=== PATIENT | female | born 1965 | race Caucasian/White ===

== ENCOUNTER 2018-02-20 14:49 | Emergency (ER) | payer MEDICARE ==
[~2018-02-20] VITALS: Ht 160 cm; Wt 97.5 kg
[~2018-02-20 14:49] MED LIST: DEPAKOTE250 MG PO; LAMICTAL100 MG PO; PROZAC40 MG PO
--- OUTSIDE RECORDS SUMMARY | 2018-02-20 14:51 | XMS REPORT | Clinical Summary ---
Author Author [facility] Organization [facility] Address Unknown Phone Unavailable Care Team Providers Care Brush Or Broom Cutter Name Role Phone Sharpless PCP Allergies Comments Active Allergy Reactions Severity Noted Date Asthma attack Naproxen Sodium Shortness Of High 05/25/2015 Breath ASTHMA Salicylates Shortness Of High 08/17/2015 Breath Codeine Nausea And 05/25/2015 Vomiting ASTHMA ATTACK Ibuprofen Shortness Of High 11/22/2015 Breath Penicillins Nausea And 05/25/2015 Vomiting Pseudoephedrine Hcl High 01/25/2016 Medications End Date Status Medication Sig Dispensed Refills Start Date Active fLUoxetine (PROZAC) 20 MG Take 80 mg by 0 capsule mouth daily. Active lamoTRIgine (LAMICTAL) Take 200 mg 0 200 MG tablet by mouth 2 (two) times daily. Active QUEtiapine (SEROQUEL) 25 Take 25 mg by 0 MG tablet mouth nightly. Active venlafaxine (EFFEXOR) 75 Take 75 mg by 0 MG tablet mouth daily. Active divalproex (DEPAKOTE) 250 Take 3 180 tablet 3 201 MG EC tablet tablets (750 6 mg total) by mouth 2 (two) times daily. Active Problems Problem Noted Date Acute encephalopathy 01/25/2016 Seizure 01/24/2016 Epilepsy 11/22/2015 Seizures 05/25/2015 Family History Medical History Relation Name Comments Rheum arthritis Father Diabetes Mother Rheum arthritis Mother Asthma Sister Cancer Sister Diabetes Sister Hypertension Sister Rheum arthritis Sister Relation Name Status Comments Father Mother Sister Social History Date Tobacco Use Types Packs/Day Years Used Quit: 04/14/2011 Former Smoker Smokeless Tobacco: Never Used Alcohol Use Drinks/Week oz/Week Comments Yes RARELY Sex Assigned at Date Recorded Not on file Industry Job Start Date Occupation Not on file Not on file Not on file Travel End Travel History Travel Start No recent travel history available. Last Filed Vital Signs Not on file Plan of Treatment Not on file Results Not on fileafter 02/19/2017 Insurance Payer Benefit Subscriber ID Type Phone Address Plan / Group MEDICARE MEDICARE A xxxxxxxxxx Medicare B Advance Directives For more information, please contact: [address] [address] Date Inactivated Comments Code Status Date Activated 01/25/2016 7:20 PM Full Code 01/24/2016 8:52 PM This code status was determined by: Patient 11/22/2015 9:49 PM Full Code 11/22/2015 4:36 PM This code status was determined by: Patient 06/01/2015 11:18 PM Full Code 05/25/2015 12:36 PM This code status was determined by: Patient
--- OUTSIDE RECORDS SUMMARY | 2018-02-20 14:51 | XMS REPORT ---
Author Author [facility] Address Unknown Phone Unavailable Care Team Providers Care Colorectal Surgeon Name Role Phone Unavailable Unavailable Payers Payer Name Policy Type Policy Number Effective Date Expiration Date Problems This patient has no known problems. Allergies, Adverse Reactions, Alerts Allergy Name Allergy Type Status Severity Reaction(s) Onset Date Inactive Date Treating Clinician Comments Phenytoin Sodium Extended DA Active [place] 2012-06-21 00:00:00 phenytoin sodium DA Active [place] 2012-06-21 00:00:00 pseudoephedrine HCl DA Active [place] 2012-06-21 00:00:00 Penicillins DA Active U 2012-06-21 00:00:00 codeine DA Active U 2012-06-21 00:00:00 aspirin DA Active U 2012-06-21 00:00:00 ibuprofen DA Active U 2012-06-21 00:00:00 erythromycin base DA Active U 2012-06-21 00:00:00 Medications This patient has no known medications. Encounters Start Date/Time End Date/Time Encounter Type Admission Type Attending [facility] Care Facility Care Department Encounter ID 2018-04-14 00:00:00 2018-04-14 00:00:00 Outpatient [facility] [id number] 2018-03-10 00:00:00 2018-03-10 00:00:00 Outpatient [facility] [id number] 2017-12-30 00:00:00 2017-12-30 00:00:00 Outpatient [facility] [id number] 2017-12-28 00:00:00 2017-12-28 00:00:00 Outpatient [facility] [id number] 2017-12-24 00:00:00 2017-12-24 00:00:00 Outpatient [facility] [id number] 2017-12-09 00:00:00 2017-12-09 00:00:00 Outpatient [facility] [id number] 2017-12-02 00:00:00 2017-12-02 00:00:00 Outpatient [facility] [id number] 2017-12-01 00:00:00 2017-12-01 00:00:00 Outpatient [facility] [id number] 2017-11-25 13:56:24 2017-11-25 13:56:24 Outpatient [facility] [id number] 2017-11-17 00:00:00 2017-11-17 00:00:00 Outpatient [facility] [id number] 2017-11-04 00:00:00 2017-11-04 00:00:00 Outpatient [facility] [id number] 2017-10-29 00:00:00 2017-10-29 00:00:00 Outpatient [facility] [id number] 2017-10-29 00:00:00 2017-10-29 00:00:00 Outpatient [facility] [id number] 2017-10-28 14:48:42 2017-10-28 14:48:42 Outpatient [facility] [id number] 2017-09-09 00:00:00 2017-09-09 00:00:00 Outpatient [facility] [id number] 2017-08-25 15:53:41 2017-08-25 15:53:41 Outpatient [facility] [id number] 2017-08-25 13:14:18 2017-08-25 13:14:18 Outpatient [facility] [id number] 2017-06-02 14:26:39 2017-06-02 14:26:39 Outpatient [facility] [id number] 2017-06-02 13:24:36 2017-06-02 13:24:36 Outpatient [facility] [id number] 2017-05-19 10:28:42 2017-05-19 10:28:42 Outpatient [facility] [id number] 2017-01-27 00:00:00 2017-01-27 00:00:00 Outpatient [facility] [id number] 2016-11-12 00:00:00 2016-11-12 00:00:00 Outpatient [facility] [id number] 2016-11-06 09:15:51 2016-11-06 09:15:51 Outpatient [facility] [id number]
--- OUTSIDE RECORDS SUMMARY | 2018-02-20 14:51 | XMS REPORT | Clinical Summary ---
Author Author [facility] Address Unknown Phone Unavailable Care Team Providers Care Liquid Yeast Supervisor Name Role Phone Olu Nj MD PCP Unavailable Allergies Comments Active Allergy Reactions Severity Noted Date Naproxen Sodium Anaphylaxis High 08/28/2016 Unknown reaction Aspirin Other (See 08/28/2016 Comments) Codeine GI 08/28/2016 Intolerance Ibuprofen 08/28/2016 Unknown reaction Penicillins Other (See 08/28/2016 Comments) Unknown reaction Phenytoin Sodium Extended Other (See 08/28/2016 Comments) Medications End Date Status Medication Sig Dispensed Refills Start Date Active divalproex (DEPAKOTE) 500 Take 1,000 mg 0 06/04/201 MG 24 hr tablet by mouth 2 7 (two) times a day. Active calcium carbonate (TUMS) Chew 1 tablet 0 200 mg calcium (500 mg) daily. chewable tablet 06/24/2017 Discontinued lamoTRIgine (LaMICtal) Take 150 mg 0 200 MG tablet by mouth 2 (two) times a day. 06/24/2017 Discontinued pravastatin (PRAVACHOL) Take 40 mg by 0 40 MG tablet mouth every evening. 06/24/2017 Discontinued albuterol (PROAIR Inhale 2 0 HFA,PROVENTIL puffs every 6 HFA,VENTOLIN HFA) 90 (six) hours mcg/actuation inhaler as needed for wheezing. 06/24/2017 Discontinued calcium carbonate-vitamin Take 1 tablet 0 D3 500 mg-200 unit per by mouth 2 tablet (two) times a day with meals. 06/24/2017 Discontinued omeprazole (PriLOSEC) 20 Take 20 mg by 0 MG capsule mouth 2 (two) times a day. 06/24/2017 Discontinued sertraline (ZOLOFT) 25 MG Take 25 mg by 0 tablet mouth daily. 07/24/2017 lamoTRIgine (LaMICtal) Take 1 tablet 60 tablet 0 150 MG tablet (150 mg 8 total) by mouth 2 (two) times a day for 30 days. 07/24/2017 sertraline (ZOLOFT) 25 MG Take 2 60 tablet 0 tablet tablets (50 8 mg total) by mouth daily for 30 days. Active Problems Problem Noted Date Seizures 06/23/2017 Pneumonia 11/16/2016 Weight loss 10/08/[address] of the abdomen 10/08/[address] scan, chest 10/08/2016 Abnormal tumor markers 10/08/2016 Dyspepsia 10/08/2016 Gastroesophageal reflux disease 10/08/2016 Abnormal barium swallow 10/08/2016 Malnutrition 09/08/2016 Generalized abdominal pain 09/07/2016 Overview: Added automatically from request for surgery [id number] Chest pain 08/28/2016 Encounters Care Team Description Date Type Specialty Barrington Ibrahim MD Demmler, Richard W., MD Seizures (Primary Dx) 06/23/2017 Hospital General Surgery - Encounter 06/24/2017 after 02/19/2017 Social History Date Tobacco Use Types Packs/Day Years Used Quit: 2004 Former Smoker Cigarettes Alcohol Use Drinks/Week oz/Week Comments Yes Sex Assigned at Date Recorded Not on file Industry Job Start Date Occupation Not on file Not on file Not on file Travel End Travel History Travel Start No recent travel history available. Last Filed Vital Signs Time Taken Vital Sign Reading 06/24/2017 11:09 AM CDT Blood Pressure 99/60 06/24/2017 11:09 AM CDT Pulse 91 06/24/2017 11:09 AM CDT Temperature 36.7 C (98.1 F) 06/24/2017 11:09 AM CDT Respiratory Rate 18 06/24/2017 11:09 AM CDT Oxygen Saturation 94% - Inhaled Oxygen - Concentration 06/24/2017 1:19 AM CDT Weight 77.1 kg (170 lb) 06/24/2017 1:19 AM CDT Height 160 cm (5' 3") 06/24/2017 1:19 AM CDT Body Mass Index 30.11 Plan of Treatment Health Maintenance Due Date Last Done Comments CERVICAL CANCER SCREENING 05/27/1984 BREAST CANCER SCREENING 05/27/2013 COLON CANCER SCREENING 05/27/2013 SHINGLES VACCINES (1 of 05/27/2013 2) INFLUENZA VACCINE 09/23/2017 08/23/2016 Procedures Comments Procedure Name Priority Date/Time Associated Diagnosis VALPROIC ACID LEVEL Routine 06/24/2017 10:46 AM CDT ZZESTIMATED GFR Routine 06/24/2017 6:34 AM CDT COMPREHENSIVE METABOLIC Routine 06/24/2017 PANEL 6:34 AM CDT HC COMPLETE BLD COUNT Routine 06/24/2017 W/AUTO DIFF 6:34 AM CDT XR CHEST 1 VW PORTABLE STAT 06/23/2017 7:[address] HEAD WO CONTRAST STAT 06/23/2017 4:20 PM CDT ALCOHOL LEVEL, BLOOD STAT 06/23/2017 12:59 PM CDT VALPROIC ACID LEVEL STAT 06/23/2017 12:55 PM CDT ZZESTIMATED GFR STAT 06/23/2017 12:55 PM CDT LACTIC ACID LEVEL STAT 06/23/2017 12:55 PM CDT COMPREHENSIVE METABOLIC STAT 06/23/2017 PANEL 12:55 PM CDT HC COMPLETE BLD COUNT STAT 06/23/2017 W/AUTO DIFF 12:55 PM CDT CREATINE KINASE, TOTAL STAT 06/23/2017 (CPK) 12:55 PM CDT after 02/19/2017 Results * Valproic acid level (06/24/2017 10:46 AM CDT) Only the most recent of 2 results within the time period is included. Valproic acid 148.6 (HH) 50.0 - 100.0 ug/mL [facility] DEPARTMENT OF Comment: PATHOLOGY AND Therapeutic Range: GENOMIC MEDICINE 50 - 100 ug/mL Results called to and read back by Muriel Lee RN at 11:33 on 06/24/2017 by DARIEL. Specimen Blood Performing Organization Address City/State/Zipcode Phone Number [address] [place] [address] PATHOLOGY AND Control de Pac[facility] * Estimated GFR (06/24/2017 6:34 AM CDT) Only the most recent of 2 results within the time period is included. GFR Non Af Amer 75 mL/min/1.73 m2 [facility] DEPARTMENT OF PATHOLOGY AND GENOMIC MEDICINE GFR Af Amer >90 mL/min/1.73 m2 [facility] DEPARTMENT OF Comment: PATHOLOGY AND Chronic kidney disease: <60 GENOMIC MEDICINE mL/min/1.73m2 Kidney failure: <15 mL/min/1.73m2 The estimated GFR is calculated from the IDMS-traceable Modification of Diet in Renal Disease Equation. The accuracy of the calculation is poor when the creatinine is normal. Calculated values >90 mL/min/1.73m2 are not reported. This equation has not been validated in children (<18 years), women, the elderly (>70 years), or ethnic groups other than Caucasians and Americans. Specimen Plasma specimen Performing Organization Address City/State/Zipcode Phone Number [address] [place] [address] PATHOLOGY [facility] * CBC with platelet and differential (06/24/2017 6:34 AM CDT) Only the most recent of 2 results within the time period is included. WBC 7.2 4.2 - 11.0 k/uL [facility] DEPARTMENT OF PATHOLOGY AND [facility] MEDICINE RBC 4.51 4.04 - 5.86 m/uL [facility] DEPARTMENT OF PATHOLOGY AND GENOMIC MEDICINE HGB 13.7 11.5 - 15.3 g/dL [facility] DEPARTMENT OF PATHOLOGY AND GENOMIC MEDICINE HCT 41.2 34.0 - 45.0 % [facility] DEPARTMENT OF PATHOLOGY AND GENOMIC MEDICINE MCV 91.4 80.0 - 98.0 fL [facility] DEPARTMENT OF PATHOLOGY AND GENOMIC MEDICINE MCH 29.9 27.0 - 34.0 pg [facility] DEPARTMENT OF PATHOLOGY AND GENOMIC MEDICINE MCHC 32.8 31.5 - 36.5 g/dL [facility] DEPARTMENT OF PATHOLOGY AND GENOMIC MEDICINE RDW - SD 43.7 37.0 - 51.0 fL [facility] DEPARTMENT OF PATHOLOGY AND GENOMIC MEDICINE MPV 10.6 (H) 7.4 - 10.4 fL [facility] DEPARTMENT OF PATHOLOGY AND GENOMIC MEDICINE Platelet count 201 150 - 400 k/uL [facility] DEPARTMENT OF PATHOLOGY AND GENOMIC MEDICINE Nucleated RBC 0.00 /100 WBC [facility] DEPARTMENT OF PATHOLOGY AND GENOMIC MEDICINE Neutrophils 64.3 36.0 - 66.0 % [facility] PATHOLOGY AND GENOMIC MEDICINE Lymphocytes 27.2 24.0 - 44.0 % [facility] DEPARTMENT OF PATHOLOGY AND GENOMIC MEDICINE Monocytes 7.8 (H) 0.0 - 6.0 % [facility] DEPARTMENT OF PATHOLOGY AND GENOMIC MEDICINE Eosinophils 0.1 0.0 - 6.0 % [facility] PATHOLOGY AND GENOMIC MEDICINE Basophils 0.3 0.0 - 1.2 % [facility] PATHOLOGY AND GENOMIC MEDICINE Immature granulocytes 0.3 0.0 - 1.0 % [facility] PATHOLOGY AND GENOMIC MEDICINE Specimen Blood Performing Organization Address City/State/Zipcode Phone Number [place] [address] [place] [address] PATHOLOGY AND GENOMIC [facility] * Comprehensive metabolic panel (06/24/2017 6:34 AM CDT) Only the most recent of 2 results within the time period is included. Sodium 139 135 - 150 mEq/L [facility] DEPARTMENT OF PATHOLOGY AND GENOMIC MEDICINE Potassium 3.8 3.5 - 5.0 mEq/L [facility] DEPARTMENT PATHOLOGY AND GENOMIC MEDICINE Chloride 106 100 - 109 mEq/L [facility] DEPARTMENT PATHOLOGY AND [facility] MEDICINE CO2 24 24 - 32 mmol/L [facility]PART[facility] PATHOLOGY AND Control [facility] MEDICINE Anion gap 9 7 - 15 mEq/L [facility] DEPARTMENT OF Comment: PATHOLOGY AND Starting from May [facility] , anion gap calculation no longer incorporates potassium. Please note the change. BUN 7 7 - 18 mg/dL [facility] DEPARTMENT OF PATHOLOGY AND GENOMIC MEDICINE Creatinine 0.8 0.8 - 1.5 mg/dL [facility] DEPARTMENT OF PATHOLOGY AND GENOMIC MEDICINE Glucose 95 65 - 100 mg/dL [facility] DEPARTMENT OF PATHOLOGY AND GENOMIC MEDICINE Calcium 8.6 8.6 - 10.7 mg/dL [facility] DEPARTMENT OF PATHOLOGY AND GENOMIC MEDICINE Protein 6.4 6.3 - 8.2 g/dL [facility] DEPARTMENT OF PATHOLOGY AND GENOMIC MEDICINE Albumin 3.0 (L) 3.2 - 5.0 g/dL [facility] DEPARTMENT OF PATHOLOGY AND GENOMIC MEDICINE A/G ratio 0.9 0.7 - 3.8 [facility] DEPARTMENT OF PATHOLOGY AND GENOMIC MEDICINE Alkaline phosphatase 61 30 - 120 U/L [facility] DEPARTMENT OF PATHOLOGY AND GENOMIC MEDICINE AST 13 (L) 15 - 37 U/L [facility] DEPARTMENT OF PATHOLOGY AND GENOMIC MEDICINE ALT 13 (L) 30 - 65 U/L [facility] DEPARTMENT OF PATHOLOGY AND GENOMIC MEDICINE Total bilirubin 0.7 0.2 - 1.2 mg/dL [facility] DEPARTMENT OF PATHOLOGY AND GENOMIC MEDICINE Specimen Plasma specimen Performing Organization Address City/State/Zipcode Phone Number [facility] DEPARTMENT OF [address] [place] [address] PATHOLOGY AND GENOMIC MEDICINE * XR Chest 1 Vw Portable (06/23/2017 7:26 PM CDT) Narrative Performed At EXAMINATION:XR CHEST 1 VW PORTABLE [facility] CLINICAL HISTORY:aspiration post seizure COMPARISON:Most Recent Prior at [facility] IMPRESSION: The heart is normal in size. The pulmonary vasculature is normal. There are no acute infiltrates or effusions. Mild interstitial scarring is noted. Degenerative changes of the osseous structures. [facility]-[id number] Procedure Note Hm Interface, Radiology Results Incoming - 06/23/2017 7:32 PM CDT EXAMINATION: XR CHEST 1 VW PORTABLE CLINICAL HISTORY: aspiration post seizure COMPARISON: Most Recent Prior at [facility] IMPRESSION: The heart is normal in size. The pulmonary vasculature is normal. There are no acute infiltrates or effusions. Mild interstitial scarring is noted. Degenerative changes of the osseous structures. [facility]-[id number] Performing Organization Address City/[facility]/Zipcode Phone Number [facility] [address] [place] [address] * CT Head Wo Contrast (06/23/2017 4:20 PM CDT) Narrative Performed At Examination: CT head without [facility] Clinical History: altered Comparison: CT brain 12/27/2016 TECHNIQUE: Axial 5 mm sections with bone and soft tissue windows. No contrast was given.Technical factors are evaluated and adjusted to ensure appropriate moderation of exposure. Automated dose management technology is supplied to adjust the radiation dose to minimize exposure while achieving a diagnostic quality image. DLP 979 FINDINGS: The maxillary sinuses are unremarkable. The sphenoid sinuses clear. Mastoid air cells are unremarkable. The pituitary gland is unremarkable. There are no masses and there is no shift in midline structures. The ventricles are symmetric. The brainstem and cerebellum are unremarkable. There are no signs of intracranial bleeding. There are no abnormal intra-axial or extra-axial fluid collections. Cortical sulci and cisterns are symmetric. There is good serrato-white matter differentiation. The calvarium is unremarkable. IMPRESSION: Unremarkable CT of the brain. [id number] Procedure Note Interface, Radiology Results Incoming - 06/23/2017 4:50 PM CDT Examination: CT head without Clinical History: altered Comparison: CT brain 12/27/2016 TECHNIQUE: Axial 5 mm sections with bone and soft tissue windows. No contrast was given.Technical factors are evaluated and adjusted to ensure appropriate moderation of exposure. Automated dose management technology is supplied to adjust the radiation dose to minimize exposure while achieving a diagnostic quality image. DLP 979 FINDINGS: The maxillary sinuses are unremarkable. The sphenoid sinuses clear. Mastoid air cells are unremarkable. The pituitary gland is unremarkable. There are no masses and there is no shift in midline structures. The ventricles are symmetric. The brainstem and cerebellum are unremarkable. There are no signs of intracranial bleeding. There are no abnormal intra-axial or extra-axial fluid collections. Cortical sulci and cisterns are symmetric. There is good serrato-white matter differentiation. The calvarium is unremarkable. IMPRESSION: Unremarkable CT of the brain. [id number] Performing Organization Address [facility] Phone Number [facility] [address] [place] [address] * Alcohol level, blood (06/23/2017 12:59 PM CDT) Alcohol None Detected mg/dL [facility] DEPARTMENT OF Comment: PATHOLOGY AND Normal GENOMIC MEDICINE None Detected Legal Intoxication in [place] 80 mg/dL (0.08%) Toxic Concentration 200 mg/dL (0.2%) Potentially Fatal 350-500 mg/dL (0.35%-0.5%) Alcohol percent None Detected % [facility] DEPARTMENT OF PATHOLOGY AND GENOMIC MEDICINE Specimen Blood Performing Organization Address City/[facility] Cent[facility]ode Phone Number [address] [address] PATHOLOGY AND GENOMIC MEDICINE * Lactic acid level (06/23/2017 12:55 PM CDT) Lactic acid 3.1 (H) 0.5 - 2.2 mmol/L [facility] DEPARTMENT OF PATHOLOGY AND GENOMIC MEDICINE Specimen Blood Performing Organization Address [facility] Cent[facility]ode Phone Number [facility] DEPARTMENT OF [address] [place] [address]. [place] [address] PATHOLOGY AND GENOMIC MEDICINE * Creatine kinase, total (CPK) (06/23/2017 12:55 PM CDT) Creatine kinase 252 (H) 61 - 224 U/L [facility] DEPARTMENT OF PATHOLOGY AND GENOMIC MEDICINE Specimen Plasma specimen Performing Organization Address City/State/Zipcode Phone Number [facility] DEPARTMENT OF [address] [place] [address] PATHOLOGY AND GENOMIC MEDICINE after 02/19/2017 Insurance Payer Benefit Subscriber ID Type Phone Address Plan / Group MEDICARE MEDICARE xxxxxxxxxx Medicare [place], [place] PART A AND B MEDICAID MEDICAID xxxxxxxxx Medicaid ([place]) [place] [address] Advance Directives Patient has advance care planning documents, and code status on file. For more i nformation, please contact: Emmanuel Hurley [address] [place] [address] Date Inactivated Comments Code Status Date Activated 11/20/2016 8:36 PM Full Code 11/16/2016 11:23 AM Code Status decision reached by: Patient
[2018-02-20] MEDS ORDERED: SERTRALINE HCL50 MG PO (15:11)
--- NOTE | 2018-02-20 15:50 | NUR ---
SEIZURE PRECAUTIONS STARTED
[2018-02-20 16:04] LABS: ALANINE AMINOTRANSFERASE 17 IU/L (0-55); ALBUMIN 4.2 g/dL (3.5-5.0); ALBUMIN/GLOBULIN RATIO 1.4 (0.8-2.0); ALKALINE PHOSPHATASE 85 IU/L (40-150); ANION GAP 15.7 mmol/L (8-16); BLOOD UREA NITROGEN < 5 mg/dL (7-26); BUN/CREATININE RATIO 6 (6-25); CALCIUM 9.4 mg/dL (8.4-10.2); CARBON DIOXIDE 26 mmol/L (22-29); CHLORIDE 94 mmol/L (98-107); CREATININE, SERUM 0.81 mg/dL (0.57-1.11); EST GLOMERULAR FILTRATION RATE > 60 ML/MIN (60-); GLUCOSE 93 mg/dL (74-118); POTASSIUM 3.7 mmol/L (3.5-5.1); SODIUM 132 mmol/L (136-145)
[2018-02-20 16:07] LABS: BASOPHILS % 0.2 % (0.0-1.0); EOSINOPHILS % 0.3 % (0.0-6.0); HEMATOCRIT 44.9 % (34.2-44.1); HEMOGLOBIN 15.3 g/dL (12.0-16.0); LYMPHOCYTES % 11.3 % (18.0-39.1); MEAN CORPUSCULAR HEMOGLOBIN 31.2 pg (28-32); MEAN CORPUSCULAR HGB CONC 34.1 g/dL (31-35); MEAN CORPUSCULAR VOLUME 91.4 fL (81-99); MONOCYTES # (AUTO) 0.5 (0.2-0.8); MONOCYTES % 5.8 % (4.4-11.3); NEUTROPHILS # (AUTO) 7.6 (2.1-6.9); NEUTROPHILS % 82.3 % (38.7-80.0); PLATELET COUNT 136 x10e3/uL (140-360); RED BLOOD COUNT 4.91 x10e6/uL (3.6-5.1); RED CELL DISTRIBUTION WIDTH 12.1 % (11.7-14.4)
[2018-02-20 16:13] LABS: CLARITY,URINE CLEAR (CLEAR); COLOR,URINE YELLOW (YELLOW)
[2018-02-20 16:14] LABS: BILIRUBIN,URINE NEGATIVE (NEGATIVE); KETONES,URINE NEGATIVE (NEGATIVE); LEUKOCYTE ESTERASE ,URINE TRACE (NEGATIVE); NITRITE,URINE NEGATIVE (NEGATIVE); PROTEIN,URINE DIPSTICK NEGATIVE (NEGATIVE); URINE UROBILINOGEN 0.2 mg/dL (0.2 - 1)
[2018-02-20 16:18] LABS: AMPHETAMINES SCREEN,URINE NEGATIVE (NEGATIVE); BENZODIAZEPINES SCREEN,URINE NEGATIVE (NEGATIVE); PHENCYCLIDINE SCREEN,URINE NEGATIVE (NEGATIVE)
[2018-02-20 16:23] LABS: THYROID STIMULATING HORMONE 1.417 uIU/mL (0.350-4.940)
[2018-02-20 16:25] LABS: WBC,URINE (MAN) 0-5 /HPF (0-5)
[2018-02-20 16:27] LABS: BACTERIA,URINE MODERATE /HPF; EPITHELIAL CELLS,URINE FEW /LPF
--- NOTE | 2018-02-20 16:28 | Diagnostic Imaging Report ---
Exam: Head CT without contrast History: Vomiting, seizure, headache Comparison studies: Head CT 08/28/2009. Technique: Axial images were obtained from the skull base to the vertex. Coronal and sagittal images reconstructed from the axial data. Dose modulation, iterative reconstruction, and/or weight based adjustment of the mA/kV was utilized to reduce the radiation dose to as low as reasonably achievable. Radiation dose: Total DLP: 921 mGy*cm. Estimated effective dose: DLP x 0.015 Intravenous contrast: None Findings: Scalp: No abnormalities. Bones: No fractures, blastic or lytic lesions. Brain sulci: Mildly prominent. Ventricles: Normal in size and configuration. No hydrocephalus. Extra-axial spaces: No masses, no fluid collection. Parenchyma: No abnormal densities. No masses, hemorrhage, acute or chronic vascular insults. Sellar/suprasellar region: No abnormalities. Craniocervical junction: Patent foramen magnum. No Chiari one malformation. IMPRESSION: 1. No acute intracranial abnormalities. 2. Mild generalized cerebral volume loss. Signed by: Dr. Santi Heath M.D. on 02/20/2018 4:25 PM
[2018-02-20] MEDS ORDERED: CEFTRIAXONE SOD 1 GM VIAL IV ONE (16:30)
[2018-02-20] MEDS ORDERED: CEFTRIAXONE SOD 1 GM/NS 50 ML 50 ML IV NR (17:00)
[2018-02-20] MEDS ORDERED: ONDANSETRON HCL INJ 2 MG/ML VIAL IV ONE (17:15)
[2018-02-20] MEDS ORDERED: HYDROCODONE/APAP 5MG-325MG TAB PO NR (18:30)
[2018-02-20] MEDS ORDERED: VALPROATE SOD INJ 500 MG in SODIUM CHLORIDE 0.9% 100 ML 100 ML IV SCH (21:00)
== END 2018-02-20 19:01 | disposition home or self-care (01) ==
LOC: ER 14:49
DX: G40.409 Other generalized epilepsy and epileptic syndromes, not intractable, without status epilepticus (principal); J11.1 Influenza due to unidentified influenza virus with other respiratory manifestations; N30.91 Cystitis, unspecified with hematuria; K52.9 Noninfective gastroenteritis and colitis, unspecified
CPT/HCPCS: 36415; 70450; 80053; 80164; 80307; 80320; 81001; 84443; 85025; 87400; 99284; J0696; J2405

== ENCOUNTER 2021-01-16 17:20 | Emergency (ER) | payer MEDICARE ==
[~2021-01-16] VITALS: Ht 160 cm; Wt 97.5 kg
[~2021-01-16 17:20] MED LIST changes: +SERTRALINE HCL50 MG PO
[2021-01-16] MEDS ORDERED: FAMOTIDINE 20 MG/2 ML VIAL IV STA (17:21)
[2021-01-16] MEDS ORDERED: METHYLPREDNISOLONE SOD SUCC 125 MG/2ML VIAL IV ONE (17:30)
[2021-01-16 18:00] LABS: BASOPHILS % 0.3 % (0.0-1.0); EOSINOPHILS # (AUTO) 0.2 (0.0-0.4); EOSINOPHILS % 1.8 % (0.0-6.0); HEMATOCRIT 46.1 % (34.2-44.1); HEMOGLOBIN 14.7 g/dL (12.0-16.0); LYMPHOCYTES # (AUTO) 2.3 (1.0-3.2); LYMPHOCYTES % 25.2 % (18.0-39.1); MEAN CORPUSCULAR HEMOGLOBIN 30.4 pg (28-32); MEAN CORPUSCULAR HGB CONC 31.9 g/dL (31-35); MEAN CORPUSCULAR VOLUME 95.4 fL (81-99); MONOCYTES # (AUTO) 0.5 (0.2-0.8); MONOCYTES % 5.5 % (4.4-11.3); NEUTROPHILS # (AUTO) 6.2 (2.1-6.9); PLATELET COUNT 235 x10e3/uL (140-360); RED BLOOD COUNT 4.83 x10e6/uL (3.6-5.1); RED CELL DISTRIBUTION WIDTH 13.2 % (11.7-14.4)
[2021-01-16 18:06] LABS: ANION GAP 16.9 mmol/L (8-16); CALCIUM 8.8 mg/dL (8.4-10.2); CREATININE, SERUM 1.19 mg/dL (0.57-1.11)
[2021-01-16 18:09] LABS: POTASSIUM 2.9 mmol/L (3.5-5.1)
[2021-01-16] MEDS ORDERED: POTASSIUM CHLORIDE 20 MEQ TAB CR PO STA (18:09)
[2021-01-16] MEDS ORDERED: KCL 20 MEQ PACKET/ ORAL SOLN NG ONE (18:30)
== END 2021-01-16 19:29 | disposition home or self-care (01) ==
LOC: ER 17:21
DX: R21 Rash and other nonspecific skin eruption (principal); T39.395A Adverse effect of other nonsteroidal anti-inflammatory drugs [NSAID], initial encounter; G30.0 Alzheimer's disease with early onset; F02.80 Dementia in other diseases classified elsewhere, unspecified severity, without behavioral disturbance, psychotic disturbance, mood disturbance, and anxiety; G40.909 Epilepsy, unspecified, not intractable, without status epilepticus
CPT/HCPCS: 36415; 71045; 80048; 85025; 93005; 99284; J2930